=== PATIENT | female | born 1960 | race African-American/Black ===

== ENCOUNTER 2016-10-21 18:44 | Emergency (ER) | payer MEDICARE, OTHER ==
[~2016-10-21] VITALS: Ht 165.1 cm; Wt 73.1 kg
[~2016-10-21 18:44] MED LIST: NAPR550 PO; Z.0.NO CURRENT MEDS
[2016-10-21 18:51] VITALS: BP 142/87; PULSE 94; RESP 19; TEMP 98; O2SAT 97
[2016-10-21 19:05] VITALS: BP 149/78; PULSE 92; RESP 18; O2SAT 100
[2016-10-21] MEDS ORDERED: UMEC1AER INH (19:15)
[2016-10-21] MEDS ORDERED: IBUP200C17 (19:15)
[2016-10-21] MEDS ORDERED: VENTAER INH ×2 (19:15→21:29)
[2016-10-21] MEDS ORDERED: SYMB160A INH (19:15)
[2016-10-21] MEDS ORDERED: TIOT1AER INH (19:15)
[2016-10-21] MEDS ORDERED: SPIRCAP INH (19:15)
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
[2016-10-21] MEDS ORDERED: ASPIRIN 81 MG CHEW TAB PO ONE (19:30)
[2016-10-21] MEDS ORDERED: SODIUM CHLORIDE 0.9% FLUSH 10 ML FLUSH IVF PRN (19:30)
[2016-10-21] MEDS ORDERED: RESP: ALBUTEROL 2.5 MG/IPRATROPIUM 0.5 MG NEB (SCH) NEB ONE (19:30)
[2016-10-21 19:47] VITALS: BP_SYST 127; BP_SYST 140; BP_DIAS 80; BP_DIAS 81; PULSE 88; RESP 18; O2SAT 98
[2016-10-21 19:56] LABS: AUTOMATED NEUTROPHIL # 6.3 TH/MM3 (1.8-7.7); BASOPHIL # 0.1 TH/MM3 (0-0.2); BASOPHIL % 0.8 % (0.0-2.0); EOSINOPHIL # 0.2 TH/MM3 (0-0.4); EOSINOPHIL % 1.7 % (0.0-4.0); HEMO FLAGS DIFF FINAL; LYMPH % 24.7 % (9.0-44.0); LYMPHOCYTE # 2.4 TH/MM3 (1.0-4.8); MEAN CELL VOLUME 81.6 FL (80.0-100.0); MEAN CORPUSCULAR HEMOGLOBIN 25.9 PG (27.0-34.0); MEAN CORPUSCULAR HGB CONC 31.7 % (32.0-36.0); NEUT % 66.8 % (16.0-70.0); PLATELET COUNT 191 TH/MM3 (150-450); RED BLOOD COUNT 4.54 MIL/MM3 (4.00-5.30); RED CELL DISTRIBUTION WIDTH 14.9 % (11.6-17.2); WHITE BLOOD COUNT 9.6 TH/MM3 (4.0-11.0)
[2016-10-21 20:04] LABS: CHLORIDE 107 MEQ/L (98-107); POTASSIUM 3.8 MEQ/L (3.5-5.1); SODIUM (NA) 140 MEQ/L (136-145)
[2016-10-21 20:07] LABS: ANION GAP 7 MEQ/L (5-15); BLOOD UREA NITROGEN 23 MG/DL (7-18); MAGNESIUM 2.2 MG/DL (1.5-2.5)
[2016-10-21 20:09] LABS: APTT (PATIENT) 28.8 SEC (24.3-30.1); PROTHROMBIN TIME - PATIENT 10.8 SEC (9.8-11.6)
[2016-10-21 20:10] LABS: GLOMERULAR FILTRATION RATE 87 ML/MIN (>89)
[2016-10-21 20:13] LABS: CREATINE KINASE 294 U/L (26-192)
[2016-10-21 20:26] LABS: CKMB 2.7 NG/ML (0.5-3.6)
--- NOTE | 2016-10-21 20:31 | RADRPT ---
EXAM DATE/TIME: 10/21/2016 20:03 [facility] COMPARISON: No previous studies available for comparison. INDICATIONS : Chest pain for three days. MEDICAL HISTORY : None. SURGICAL HISTORY : None. ENCOUNTER: Initial ACUITY: 3 days PAIN SCORE: 5/10 LOCATION: Left chest FINDINGS: A single view of the chest demonstrates the lungs to be symmetrically aerated without evidence of mas s, infiltrate or effusion. The cardiomediastinal contours are unremarkable. Osseous structures are intact with a dextroscoliosis of the rectal lumbar spine and associated degenerative changes. CONCLUSION: No acute cardiopulmonary process. Daniel Colón MD on October 21, 2016 at 20:29 Board Certified Radiologist. This report was verified electronically.
[2016-10-21] MEDS ORDERED: SODIUM CHLORID 0.9% 500 ML INJ 500 ML IV ONE (20:45)
[2016-10-21] MEDS ORDERED: KETOROLAC TROMETHAMINE 30 MG/ML (IVP) VIAL IV PUSH ONE (20:45)
[2016-10-21 20:50] VITALS: BP_SYST 128; BP_SYST 142; BP_DIAS 78; BP_DIAS 80; PULSE 82; RESP 18; O2SAT 99
[2016-10-21] MEDS ORDERED: ROBA750T PO (21:30)
[2016-10-21 21:34] VITALS: BP 150/80; TEMP 98.6
--- NOTE | 2016-10-22 11:41 | EKG ---
Date Performed: 10/21/2016 Time Performed: 19:10:06 PTAGE: 55 years EKG: Sinus rhythm NORMAL ECG NO PREVIOUS TRACING DOCTOR: Gennaro Sandoval Interpretating Date/Time 10/22/2016 11:39:10
== END 2016-10-21 21:57 | disposition home or self-care (01) ==
LOC: PHED 18:44
DX: M62.830 Muscle spasm of back (principal); J44.9 Chronic obstructive pulmonary disease, unspecified; E78.5 Hyperlipidemia, unspecified; F17.210 Nicotine dependence, cigarettes, uncomplicated; R07.9 Chest pain, unspecified; R06.2 Wheezing; E83.51 Hypocalcemia
CPT/HCPCS: 71010; 80048; 82550; 82552; 83735; 84484; 85025; 85610; 85730; 93005; 94664; 96361; 96374; 99285; J1885; J7040

== ENCOUNTER → 2017-03-24 | Outpatient (CLI) | payer OTHER ==
[~2017-03-24] MED LIST changes: +IBUP200C17; -NAPR550 PO; +ROBA750T PO; +SPIRCAP INH; +SYMB160A INH; +TIOT1AER INH; +UMEC1AER INH; +VENTAER INH; -Z.0.NO CURRENT MEDS
--- NOTE | 2017-03-25 10:03 | RSPPFT ---
DATE OF PROCEDURE: 03/24/17 COMMENTS: The forced vital capacity is markedly reduced. The FEV1 and FEF 25-75 are both markedly reduced with no significant improvement after bronchodilator. The FEV1/FVC ratio is markedly reduced. The total lung capacity is reduced with a normal residual volume and a normal RV/TLC ratio. IMPRESSION: This is compatible with severe, large and small airways, irreversible, obstructive lung disease with a small restrictive component.
== END ==
LOC: PHRSP 03-23 08:22
PROVIDERS: ATTEND Family Medicine
DX: J44.9 Chronic obstructive pulmonary disease, unspecified (principal)
CPT/HCPCS: 94060; 94729